=== PATIENT | female | born 1935 | race Caucasian/White ===

== ENCOUNTER 2017-12-31 06:42 | Emergency (ER) | payer MEDICARE, OTHER, SELFPAY ==
[2017-12-31 06:46] VITALS: BP 187/90; PULSE 76; RESP 18; TEMP 36.6; O2SAT 92; BMI 25.7
--- NOTE | 2017-12-31 06:58 | XR_ITS ---
XR elbow LT min 3V Ordering Physician: Sylvester Snyder MD Patient Age: 82 years: Female HISTORY: ITS.REASON: fall / pain TECHNIQUE: 3 views left elbow COMPARISON : No left elbow studies. There is a right elbow from November 2016 FINDINGS No joint effusion. No good evidence of fracture. Demineralization. The joint spaces fairly well maintained with only slight narrowing at the medial joint noted. The radial head is intact IMPRESSION: 1. left elbow intact. No fracture nor dislocation . No joint effusion evident
--- NOTE | 2017-12-31 06:58 | XR_ITS ---
XR shoulder LT min 2V Ordering Physician: Sylvester Snyder MD Patient Age: 82 years: Female HISTORY: ITS.REASON: fall Fall with left shoulder pain. Limited range of motion TECHNIQUE: 3 views left shoulder COMPARISON :Previous CT cervical spine June 2016 and previous CXR AP FINDINGS No acute fracture nor dislocation. Diffuse demineralization.. The glenohumeral joint is intact. Humeral head and neck overall intact with no acute findings. Roughening at the cap of the greater tuberosity noted likely reflecting some degenerative changes and possibly impingement sequela. Subacromial space unremarkable. mild hypertrophy and degenerative changes at the AC joint noted. Final clinical intact. Scapula unremarkable. Area of dense linear calcification is seen at the base the neck on the left on from proximal vascular, carotid calcification or. This is stable since 2015 CT cervical IMPRESSION 1. No acute fracture nor subluxation. Glenohumeral joint is intact. 2. degenerative changes left AC joint.. Roughening at the greater tuberosity likely reflects degenerative changes as well
--- NOTE | 2017-12-31 06:58 | XR_ITS ---
XR wrist LT min 3V Ordering Physician: Sylvester Snyder MD Patient Age: 82 years: Female HISTORY: ITS.REASON: fall / pain TECHNIQUE: 3 views left wrist COMPARISON :None available FINDINGS No definitive fracture nor dislocation but there are curious observations require correlation Undulation is seen at distal radius & along lateral base of radial styloid. This may merely be contour variation. Difficult to exclude a minor fracture here but I see no discrete cortical disruption of the articular surface to further support &the fat plane along the anterior aspect of the wrist does not appear to be- displaced to further raise concern. . Also Mild sclerotic line transversing the distal navicular is noted, but I favor also more likely related contour line as well, with no discrete cortical disruption evident.. However if focal pain at distal radius or anatomical snuffbox would encourage splinting with follow-up in one week.* Mild soft tissue swelling about the wrist appear to be most evident overlying the ulnar styloid seems intact. Degenerative changes at first carpal-metacarpal joint of most evident. Diffuse mild demineralization. 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 Faint calcification radial artery . IMPRESSION: 1. no definitive fracture left wrist. . 2. accentuated undulation base of the radial styloid, I tend to favor this is merely contour variation. Doubt fracture but warrants correlation. 3. Also a subtle sclerotic transverse line at the distal navicular, more likely contour Feature. Doubt fracture. However if there should be significant point tenderness at anatomical snuffbox or region of radial styloid, would encourage splinting and follow-up in one week.* 4. Mild soft tissue swelling appear to be most evident overlying the distal ulna which appears intact 5. degenerative changes as in text
--- NOTE | 2017-12-31 06:58 | XR_ITS ---
XR hip RT 2-3V w/pelvis, XR hip LT 2-3V w/pelvis Ordering Physician: Sylvester Snyder MD Patient Age: 82 years: Female HISTORY: ITS.REASON: fall TECHNIQUE: 1 Right hip. AP and crosstable lateral view 2 Left hip. AP and frog-leg view 3 AP pelvis single view radiograph COMPARISON :Previous CT pelvis December 01, 2016. Previous right hip same day ======== RIGHT HIP 2 views Stable right GUILLE again noted. 4 screws secure the acetabular component into roof of right acetabulum. There is perhaps a slight flattened angled acetabulum component with associated osseous buttressing along its lateral margin due to such. But it appears stable & satisfactory. The femoral head prosthesis appears stable. The stem of the medullary component seen in entirety. No acute findings. No Fracture nor loosening evident at this right GUILLE .======= LEFT HIP 2 views The AP & frog-leg view of the left hip are compared to 12/01/2016.. Left femoral head and neck appear intact overall. Note curious lines which are projected through the left femoral head on the AP view but I believe these are most likely related to previous fragmented hypertrophic bone along the margin of the acetabulum as seen on previous CT. study. However with these lines is difficult to exclude a subtle fracture since they appear slightly different. Low threshold for pursuing CT recommended if there has been injury and significant pain at the left hip. . There is also some minimal osseous density versus vascular calcification just inferior to the left femoral neck likely present before but slightly more apparent today. Degenerative changes left hip are again noted: Trace joint space narrowing superiorly left hip joint. Hypertrophic lipping seen diffusely along the margins of the acetabulum as well as at the base of the femoral head. These appear similar. ====== AP PELVIS. The osseous pelvis appears intact otherwise with some mild sclerotic changes about the pubis. Sacrum unremarkable. Pfeiffer catheter in place. Vascular Clips at the left groin reflect previous surgery here. IMPRESSION RIGHT HIP: StableRight GUILLE appears intact & stable since November 2016 studies LEFT HIP: Degenerative changes at the left hip most likely stable. However Note curious lines are most likely related to the irregular marginal hypertrophic changes about rim of acetabulum seen on November CT.. However difficult to exclude subtle fracture and if significant pain CT would be warranted to further evaluate. . Remainder the AP pelvis appears stable. Intact. Diffuse demineralization.
[2017-12-31 07:13] LABS: Microscopic,Cath URINE MICROSCOPIC (MICROSCOPIC)
[2017-12-31 07:15] LABS: Basophils % 0.3 % (0.1-2.0); Eosinophils # 0.1 K/mm3 (0.0-0.4); Hematocrit 31.4 % (37.0-47.0); Hemoglobin 10.1 g/dL (12.2-16.2); Lymphocytes # 1.2 K/mm3 (0.7-4.5); Lymphocytes % 11.4 K/mm3 (10-50); Mean Corpuscular HGB Conc 32.2 g/dL (31.8-35.4); Mean Corpuscular Hemoglobin 27.7 pg (27.0-31.2); Mean Platelet Volume 9.7 fl (7.4-10.4); Monocytes # 0.6 K/mm3 (0.1-1.0); Monocytes % 5.9 % (1.7-9.3); Neutrophils # 8.4 K/mm3 (1.8-7.8); Neutrophils % 81.4 % (37.0-80.0); Platelet Count 239 K/mm3 (142-424); Red Blood Count 3.65 M/mm3 (4.20-5.40); Red Cell Distribution Width 14.6 % (11.5-17.5); White Blood Count 10.3 K/mm3 (4.8-10.8)
[2017-12-31 07:22] LABS: Appearance,Urine/Cath CLEAR (Clear); Bilirubin,Cath Negative (Negative); Blood, Urine/Cath 2+ (Negative); Color,Urine/Cath YELLOW (Yellow); Glucose,Urine/Cath (UA) TRACE (Negative); Ketones,Urine/Cath Negative (Negative); Leukocyte Esterase,Cath Negative (Negative); Nitrate,Cath Negative (Negative); PH,Urine/Cath 5.5 (5.0-8.5); Protein,Urine/Cath 3+ (Negative); Specific Gravity, Urine/Cath 1.025 (1.005-1.030); Urobilinogen,Cath 0.2 EU/dl (0.2)
[2017-12-31 07:30] LABS: Amorphous Sediment,Ur/Cath 3+ /lpf; WBC,Urine/Cath Occasional #/hpf (0-3)
[2017-12-31 07:41] LABS: Anion Gap 14.2 mEq/L (5-15); Blood Urea Nitrogen 37 mg/dL (7-18); CKMB Relative Index 1.3 U/L (0-4.0); Carbon Dioxide 22 mmol/L (21.0-32.0); Chloride 106 mmol/L (98-107); Creatine Kinase 180 U/L (26-192); Creatine Kinase MB 2.3 mg/ml (0.0-3.6); Creatinine Clearance Estimated 24 mL/min (0-300); Creatinine,Serum 1.95 mg/dL (0.55-1.02); Estimated Glomerular Filt Rate 25 ml/min (>60); GFR (African American) 30 ML/MIN (>60); Glucose 230 mg/dL (74-106); Sodium 137 mmol/L (136-145); Troponin I < 0.02 ng/ml (0.00-0.06)
[2017-12-31 07:46] LABS: Potassium 5.2 mmoL/L (3.5-5.1)
--- NOTE | 2017-12-31 08:32 | [facility].EDFALL ---
ED Disposition Clinical Impression: Renal insufficiency Contusion, hip Qualifiers: Encounter type: initial encounter Laterality: left Qualified Code(s): S70.02XA - Contusion of left hip, initial encounter Left wrist sprain Qualifiers: Encounter type: initial encounter Qualified Code(s): S63.502A - Unspecified sprain of left wrist, initial encounter Sprain of shoulder, left Qualifiers: Encounter type: initial encounter Shoulder sprain type: other part of shoulder region Qualified Code(s): S43.492A - Other sprain of left shoulder joint, initial encounter Anemia Qualifiers: Anemia type: unspecified type Qualified Code(s): D64.9 - Anemia, unspecified Fall Qualifiers: Encounter type: initial encounter Qualified Code(s): W19.XXXA - Unspecified fall, initial encounter Disposition: Home, Self-Care Condition on Discharge: Good Instructions: How to Prevent Falls Additional Instructions: see your dr enrique to discuss labs and falls - Critical Care Critical Care Time: No Attestation: On 12/31/17, the high probability of a clinically significant, sudden or life threatening deterioration of the following system(s) required my full and direct attention, intervention and personal management. The time I documented below is in addition to time spent performing reported procedures but includes the following listed in this critical care notation. Medical Decision Making - Medical Records Medical records reviewed: Yes: I reviewed the patient's medical records. Vital Signs: 12/31/17 06:46 Temperature 97.8 F Temperature Source Oral Pulse Rate [Right Radial] 76 Respiratory Rate 18 Blood Pressure [Right Arm] 187/90 Blood Pressure Mean [Right Arm] 122 Blood Pressure Source [Right Arm] Automatic Cuff Blood Pressure Position [Right Arm] Sitting 02 Sat by Pulse Oximetry 92 L Oxygen Delivery Method Room Air - Lab Data Lab results reviewed: Yes: I reviewed the patient's lab results. Lab Results 12/31/17 07:05: WBC 10.3, RBC 3.65 L, Hgb 10.1 L, Hct 31.4 L, MCV 86.0, MCH 27.7, MCHC 32.2, RDW 14.6, Plt Count 239, MPV 9.7, Neut % (Auto) 81.4 H, Lymph % (Auto) 11.4, [place] % (Auto) 5.9, Eos % (Auto) 1.0, Baso % (Auto) 0.3, Neut # (Auto) 8.4 H, Lymph # (Auto) 1.2, [place] # (Auto) 0.6, Eos # (Auto) 0.1, Baso # (Auto) 0.0 12/31/17 07:05: Sodium 137, Potassium 5.2 H, Chloride 106, Carbon Dioxide 22, Anion Gap 14.2, BUN 37 H, Creatinine 1.95 H, Estimated Creat Clear 24, Estimated GFR 25 L, Est GFR ( Amer) 30 L, Glucose 230 H, Total Creatine Kinase 180, CK-MB (CK-2) 2.3, CK-MB (CK-2) Rel Index 1.3, Troponin I < 0.02 12/31/17 07:10: Urine Color Yellow, Urine Appearance Clear, Urine pH 5.5, Ur Specific [place] 1.025, Urine Protein 3+, Urine Glucose (UA) Trace, Urine Ketones Negative, Urine Blood 2+, Urine Nitrate Negative, Urine Bilirubin Negative, Urine Urobilinogen 0.2, Ur Leukocyte Esterase Negative, Urine RBC 10-20, Urine WBC Occasional Result diagrams: 12/31/17 07:05 12/31/17 07:05 Orders (Tests/Meds): ORDERS Category Date Time Status XR shoulder LT min 2V Stat Exams 12/31/17 06:58 Taken - Radiology Data #1 Image(s): Shoulder, Elbow, Wrist, Pelvis, Hip Image Reviewed: Yes I reviewed the patient's radiology image Preliminary Findings: Abnormal, No Fracture Seen - CT Data CT Scan: Other Time Received: 11:[address] Reviewed: Yes: I have viewed the radiologist's interpretation Preliminary Findings: Abnormal - Иван Inquiry Pt receiving controlled substance: No Fall HPI - General Chief Complaint: Fall Stated Complaint: fall Time Seen by Provider: 12/31/17 07:00 Mode of Arrival: EMS Source of Information: Patient, EMS, Medical Record Limitations: No Limitations Description of Symptoms (Recalled from ER Triage Doc. by RN): fall , dizziness, right hip pain , left arm pain - History of Present Illness HPI Narrative: pt was getting up this evening and fell with lt wrist and hip pain with no loc
--- NOTE | 2017-12-31 08:36 | CT_ITS ---
CT hip RT wo con 3-D volume reconstructions with shading at pelvis Ordering Physician: Sylvester Snyder MD Patient Age: 82 years: Female HISTORY: ITS.REASON: fall TECHNIQUE: Helical CT scanning performed through the right hip with sagittal and coronal reconstructions on CT workstation . In addition 3-D volumetric reconstructions with shading performed on independent workstation- ... 77 CPT COMPARISON :Previous CT pelvis both hips 12/01/2016 FINDINGS Right GUILLE in place. The acetabular prosthesis is secured by multiple screws to the roof of acetabulum. It appears intact. Slight osseous buttressing extends all lateral over the superior lateral margin of this prosthesis. Long-standing appearance. Stable overall appearance with no new findings. The medullary stem at the proximal femur included. No fractures of proximal femur evident either. The components of the right GUILLE articulates satisfactorily with no fracture nor loosening associated with components or elsewhere on the visualized images of the right hip, right hemipelvis. The sacrum partially imaged unremarkable as is the right SI joint. The right superior and inferior ramus are intact. No acute findings. Diffuse at right STATION vessels SFA bilateral iliacs noted IMPRESSION No acute fracture or findings at the right hip Right GUILLE intact. stable since November 2016
--- NOTE | 2017-12-31 08:36 | CT_ITS ---
CT hip LT wo con Ordering Physician: Sylvester Snyder MD Patient Age: 82 years: Female HISTORY: ITS.REASON: fall Left hip pain fall. Irregularities on plain film at left hip TECHNIQUE: Helical CT scanning performed through the left hip with sagittal and coronal reconstructions on CT workstation. COMPARISON :Previous left hip study 12/01/[address] shows no significant change since December 01, 2016 CT pelvis The left femoral head & neck appear intact no fracture.. Prominent hypertrophic lipping and ridging again seen about the margin margin of acetabulum. This somewhat irregular a slightly fragmented appearance of of this marginal hypertrophy is again seen and similar to previous studies. It is most evident at the posterior and anterior inferior aspect of acetabulum.. Mild sclerosis is seen both sides about the hypertrophic margins of the joint.... There is narrowing superior joint space with mild sclerosis No significant joint effusion. Upper normal joint fluid. The pubis included and appears stable with mild degenerative changes. Superior and inferior ramus intact. Additional intact. The sacrum only partially imaged on the limited visualized portion left sacrum intact left SI joint intact. Diffuse demineralization. Suspect there may be a hematoma just lateral to the hip at the greater tuberosity. Clinical correlation required. Bruising here?? IMPRESSION: 1.No acute fracture at left hip Stable appearance since December 01, 2016. Stable Degenerative changes of the left hip with joint space narrowing. Hypertrophic lipping about the acetabula slightly fragmented margins in some areas again noted and stable- however these account for the curious lines on plain film 2. Suspect minimal focal hematoma in the superficial soft tissues overlying the left hip and greater trochanter. It there bruising here?
--- NOTE | 2017-12-31 08:36 | ED_ITS ---
ED Disposition Clinical Impression: Renal insufficiency Contusion, hip Qualifiers: Encounter type: initial encounter Laterality: left Qualified Code(s): S70.02XA - Contusion of left hip, initial encounter Left wrist sprain Qualifiers: Encounter type: initial encounter Qualified Code(s): S63.502A - Unspecified sprain of left wrist, initial encounter Sprain of shoulder, left Qualifiers: Encounter type: initial encounter Shoulder sprain type: other part of shoulder region Qualified Code(s): S43.492A - Other sprain of left shoulder joint, initial encounter Anemia Qualifiers: Anemia type: unspecified type Qualified Code(s): D64.9 - Anemia, unspecified Fall Qualifiers: Encounter type: initial encounter Qualified Code(s): W19.XXXA - Unspecified fall, initial encounter Disposition: Home, Self-Care Condition on Discharge: Good Instructions: How to Prevent Falls Additional Instructions: see your dr enrique to discuss labs and falls - Critical Care Critical Care Time: No Attestation: On 12/31/17, the high probability of a clinically significant, sudden or life threatening deterioration of the following system(s) required my full and direct attention, intervention and personal management. The time I documented below is in addition to time spent performing reported procedures but includes the following listed in this critical care notation. Medical Decision Making - Medical Records Medical records reviewed: Yes: I reviewed the patient's medical records. Vital Signs: 12/31/17 06:46 Temperature 97.8 F Temperature Source Oral Pulse Rate [Right Radial] 76 Respiratory Rate 18 Blood Pressure [Right Arm] 187/90 Blood Pressure Mean [Right Arm] 122 Blood Pressure Source [Right Arm] Automatic Cuff Blood Pressure Position [Right Arm] Sitting 02 Sat by Pulse Oximetry 92 L Oxygen Delivery Method Room Air - Lab Data Lab results reviewed: Yes: I reviewed the patient's lab results. Lab Results 12/31/17 07:05: WBC 10.3, RBC 3.65 L, Hgb 10.1 L, Hct 31.4 L, MCV 86.0, MCH 27.7 , MCHC 32.2, RDW 14.6, Plt Count 239, MPV 9.7, Neut % (Auto) 81.4 H, Lymph % ( Auto) 11.4, [place] % (Auto) 5.9, Eos % (Auto) 1.0, Baso % (Auto) 0.3, Neut # (Auto ) 8.4 H, Lymph # (Auto) 1.2, [place] # (Auto) 0.6, Eos # (Auto) 0.1, Baso # (Auto) 0.0 12/31/17 07:05: Sodium 137, Potassium 5.2 H, Chloride 106, Carbon Dioxide 22, Anion Gap 14.2, BUN 37 H, Creatinine 1.95 H, Estimated Creat Clear 24, Estimated GFR 25 L, Est GFR ( Amer) 30 L, Glucose 230 H, Total Creatine Kinase 180, CK-MB (CK-2) 2.3, CK-MB (CK-2) Rel Index 1.3, Troponin I < 0.02 12/31/17 07:10: Urine Color Yellow, Urine Appearance Clear, Urine pH 5.5, Ur Specific [place] 1.025, Urine Protein 3+, Urine Glucose (UA) Trace, Urine Ketones Negative, Urine Blood 2+, Urine Nitrate Negative, Urine Bilirubin Negative, Urine Urobilinogen 0.2, Ur Leukocyte Esterase Negative, Urine RBC 10- 20, Urine WBC Occasional Result diagrams: 12/31/17 07:05 12/31/17 07:05 Orders (Tests/Meds): ORDERS Category Date Time Status XR shoulder LT min 2V Stat Exams 12/31/17 06:58 Taken - Radiology Data #1 Image(s): Shoulder, Elbow, Wrist, Pelvis, Hip Image Reviewed: Yes I reviewed the patient's radiology image Preliminary Findings: Abnormal, No Fracture Seen - CT Data CT Scan: Other Time Received: 11:[address] Reviewed: Yes: I have viewed the radiologist's interpreta
[2017-12-31 11:36] VITALS: BP 170/80; PULSE 80; RESP 16; TEMP 37; O2SAT 98
== END 2017-12-31 11:37 | disposition home or self-care (01) ==
PROVIDERS: Emergency Provider Emergency Medicine; Family Provider Internal Medicine Cardiovascular Disease
DX: S70.02XA Contusion of left hip, initial encounter (principal); S63.502A Unspecified sprain of left wrist, initial encounter; S43.492A Other sprain of left shoulder joint, initial encounter; N28.9 Disorder of kidney and ureter, unspecified; D64.9 Anemia, unspecified; W01.0XXA Fall on same level from slipping, tripping and stumbling without subsequent striking against object, initial encounter; Z91.81 History of falling; Y92.019 Unspecified place in single-family (private) house as the place of occurrence of the external cause; E10.649 Type 1 diabetes mellitus with hypoglycemia without coma; Z87.891 Personal history of nicotine dependence; I10 Essential (primary) hypertension; Z96.641 Presence of right artificial hip joint
CPT/HCPCS: 73030; 73080; 73110; 73502; 73700; 80048; 81001; 82550; 82553; 84484; 85025; 93005; 93041; 99283